=== PATIENT | male | born 1960 | race Caucasian/White ===

== ENCOUNTER 2017-01-03 14:04 | Emergency (ER) | payer SELFPAY ==
[~2017-01-03] VITALS: Ht 162.6 cm; Wt 57.0 kg
[2017-01-03] MEDS ORDERED: CloNIDine HCL 0.2 MG TABLET PO ONE (16:45)
[2017-01-03 18:24] VITALS: BP 154/98
== END 2017-01-03 18:50 | disposition home or self-care (01) ==
LOC: EMS 14:06
DX: J06.9 Acute upper respiratory infection, unspecified (principal); I10 Essential (primary) hypertension
CPT/HCPCS: 71020; 99284

== ENCOUNTER 2017-09-03 09:37 | Emergency (ER) | payer OTHER ==
[~2017-09-03] VITALS: Ht 160 cm; Wt 57.0 kg
[2017-09-03] MEDS ORDERED: ASPIRIN 81 MG CHEWABLE TABLET PO ONE (10:30)
[2017-09-03 10:35] LABS: BASOPHILS # (AUTO) 0.05 K/uL (0.00-0.20); BASOPHILS % (AUTO) 0.9 % (0.0-2.0); EOSINOPHILS # (AUTO) 0.05 K/uL (0.00-0.70); HEMATOCRIT 49.9 % (41-53); HEMOGLOBIN 15.9 g/dL (13.5-17.5); LYMPHOCYTES # (AUTO) 1.2 K/uL (1.0-4.8); LYMPHOCYTES % (AUTO) 22.8 % (22.0-44.0); MEAN CORPUSCULAR HEMOGLOBIN 31.4 pg (26.0-34.0); MEAN CORPUSCULAR HGB CONC 31.9 G/dL (31.0-37.0); MEAN CORPUSCULAR VOLUME 99 fL (80-100); MONOCYTES # (AUTO) 0.6 K/uL (0.1-1.0); MONOCYTES % (AUTO) 11.1 % (2.0-9.0); NEUTROPHILS # (AUTO) 3.2 K/uL (1.8-7.7); NEUTROPHILS % (AUTO) 64.2 % (40.0-70.0); PLATELET COUNT (AUTO) 226 K/uL (150-450); RED BLOOD CELL COUNT(AUTO) 5.06 MIL/uL (4.50-5.90); RED CELL DISTRIBUTION WIDTH 14.1 % (11.5-14.5)
[2017-09-03 10:49] LABS: ANION GAP 10 mmol/L (8-16); CALCIUM, TOTAL 8.9 mg/dL (8.8-10.5); CARBON DIOXIDE 26 mmol/L (22-29); CHLORIDE 101 mmol/L (98-107); CREATININE 0.96 mg/dL (0.60-1.30); GLOMERULAR FILTR. RATE CALC > 60 mL/min (>60); POTASSIUM 3.9 mmol/L (3.5-5.1); SODIUM SERUM 137 mmol/L (136-145); UREA NITROGEN, BLOOD 15 mg/dL (7-18)
[2017-09-03 10:56] LABS: B-TYPE NATRIURETIC PEPTIDE 13 pg/mL (0-100)
[2017-09-03 11:20] LABS: ALANINE AMINOTRANSFERASE 33 U/L (12-78); ASPARTATE AMINOTRANSFERASE 21 U/L (15-37); BILIRUBIN,TOTAL 1.1 mg/dL (0.1-1.0); CREATINE KINASE MB 0.5 ng/mL (0-5); CREATINE KINASE, TOTAL 76 U/L (39-308); TOTAL PROTEIN, SERUM 7.9 g/dL (6.4-8.2)
[2017-09-03 11:28] LABS: APPEARANCE,URINE CLEAR (CLEAR); GLUCOSE, URINE (UA) NEGATIVE (NEGATIVE); KETONES,URINE NEGATIVE (NEGATIVE); LEUKOCYTE ESTERASE ,URINE NEGATIVE (NEGATIVE); OCCULT BLOOD,URINE NEGATIVE (NEGATIVE); PROTEIN,URINE NEGATIVE (NEGATIVE)
[2017-09-03 11:29] LABS: ADD UA MICROSCOPIC NO
[2017-09-03 12:15] VITALS: BP 176/107
[2017-09-03] MEDS ORDERED: HYDROCHLOROTHIAZIDE 25 MG TABLET PO ONE (12:15)
== END 2017-09-03 12:23 | disposition home or self-care (01) ==
LOC: EMS 09:39
DX: I10 Essential (primary) hypertension (principal); R07.9 Chest pain, unspecified
CPT/HCPCS: 93005; 99285

== ENCOUNTER 2025-09-13 14:10 | Emergency (ER) | payer OTHER ==
[~2025-09-13] VITALS: Ht 165.1 cm; Wt 79.5 kg
[2025-09-13 14:14] VITALS: TEMP 98.3
[2025-09-13] MEDS ORDERED: NAPR-1196 PO (14:58)
[2025-09-13] MEDS ORDERED: LIDO-57 TP (14:58)
[2025-09-13] MEDS ORDERED: METH-659 PO (14:58)
[2025-09-13] MEDS: LIDOCAINE 5% TRANSDERMAL PATCH TD ONE (15:42)
[2025-09-13] MEDS: KETOROLAC TROMETHAMINE 30 MG/ML VIAL IM ONE (15:43)
[2025-09-13 16:24] VITALS: BP 180/103; PULSE 79; RESP 17; O2SAT 100
== END 2025-09-13 16:49 | disposition home or self-care (01) ==
LOC: EMS 14:10
DX: S39.012A Strain of muscle, fascia and tendon of lower back, initial encounter (principal); I10 Essential (primary) hypertension; Z79.899 Other long term (current) drug therapy; X50.0XXA Overexertion from strenuous movement or load, initial encounter; Y93.89 Activity, other specified; Y92.89 Other specified places as the place of occurrence of the external cause; Y99.8 Other external cause status
CPT/HCPCS: 96372; 99283; J1885

== ENCOUNTER 2025-09-17 12:09 | Emergency (ER) | payer OTHER ==
[~2025-09-17] VITALS: Ht 160 cm; Wt 59.5 kg
[~2025-09-17 12:09] MED LIST: LIDO-57 TP; METH-659 PO; NAPR-1196 PO
[2025-09-17 12:13] VITALS: TEMP 98.1
[2025-09-17] MEDS ORDERED: HYDR-4062 PO (13:15)
[2025-09-17] MEDS ORDERED: METH-659 PO (13:15)
[2025-09-17 13:50] VITALS: BP 168/94; PULSE 82; RESP 18; O2SAT 99
[2025-09-17] MEDS: KETOROLAC TROMETHAMINE 60 MG/2 ML VIAL IM ONE (13:53)
== END 2025-09-17 14:13 | disposition home or self-care (01) ==
LOC: EMS 12:09
DX: S39.012A Strain of muscle, fascia and tendon of lower back, initial encounter (principal); I10 Essential (primary) hypertension; X58.XXXA Exposure to other specified factors, initial encounter; Y93.89 Activity, other specified; Y92.89 Other specified places as the place of occurrence of the external cause; Y99.8 Other external cause status
CPT/HCPCS: 99283; 96372; J1885